=== PATIENT | male | born 1935 | race Caucasian/White ===

== ENCOUNTER 2021-07-09 18:31 | Inpatient (IN) ==
[2021-07-10] MEDS ORDERED: Menthol 1 EACH LOZENGE PO PRN (16:41)
[2021-07-10] MEDS ORDERED: Acetaminophen 325 MG TABLET PO PRN (16:42)
[2021-07-10] MEDS ORDERED: Mag Hydrox/Al Hydrox/Simeth 30 ML UDC PO PRN (16:42)
[2021-07-10] MEDS ORDERED: Ondansetron ODT 4 MG TAB.RAPDIS SL PRN (16:42)
[2021-07-10] MEDS: *HR* Heparin 5,000 UNIT/ML VIAL SQ SCH (20:07)
[2021-07-11] MEDS: *HR* Heparin 5,000 UNIT/ML VIAL SQ SCH ×2 (05:42→17:55)
[2021-07-11 09:43] LABS: Basophils % 0.5 %; Eosinophils # 0.3 K/mcL (0.0-0.6); Eosinophils % 4.5 %; Hematocrit 36.1 % (37.5-50.1); Hemoglobin 12.2 g/dL (12.9-16.9); Immature Granulocytes % 0.7 % (0-4); Lymphocytes % 17.1 %; Mean Corpuscular HGB Conc 33.8 g/dL (31.6-35.5); Mean Corpuscular Hemoglobin 28.5 pg (28.0-33.3); Mean Corpuscular Volume 84.3 fL (83.0-100.0); Mean Platelet Volume 10.6 fL (9.4-12.4); Monocytes # 0.5 K/mcL (0.0-1.3); Monocytes % 9.7 %; Neutrophils # 3.8 K/mcL (1.6-8.9); Platelet Count 217 K/mcL (140-400); Red Blood Count 4.28 M/mcL (4.19-5.50); Red Cell Distribution Width 12.9 % (11.5-14.5); Segmented Neutrophils % 67.5 %; White Blood Count 5.6 K/mcL (4.3-11.1)
[2021-07-11 10:00] LABS: Potassium 4.1 mEq/L (3.5-5.1)
[2021-07-11] MEDS: lisinopriL 10 MG TABLET PO SCH (10:12)
[2021-07-11] MEDS: Aspirin Enteric Coated 325 MG Tablet PO SCH (10:12)
[2021-07-11] MEDS: Melatonin 3 MG TABLET PO PRN (23:52)
[2021-07-12] MEDS: *HR* Heparin 5,000 UNIT/ML VIAL SQ SCH ×2 (05:34→17:48)
[2021-07-12] MEDS: Aspirin Enteric Coated 325 MG Tablet PO SCH (10:47)
[2021-07-12] MEDS: lisinopriL 10 MG TABLET PO SCH (10:47)
[2021-07-12] MEDS: Melatonin 3 MG TABLET PO PRN (21:20)
[2021-07-13] MEDS: *HR* Heparin 5,000 UNIT/ML VIAL SQ SCH ×2 (06:02→17:54)
[2021-07-13] MEDS: Aspirin Enteric Coated 325 MG Tablet PO SCH (09:53)
[2021-07-13] MEDS: lisinopriL 10 MG TABLET PO SCH (09:53)
[2021-07-13] MEDS: Melatonin 3 MG TABLET PO PRN (20:48)
[2021-07-14] MEDS: *HR* Heparin 5,000 UNIT/ML VIAL SQ SCH ×2 (06:52→17:02)
[2021-07-14] MEDS: Aspirin Enteric Coated 325 MG Tablet PO SCH (09:26)
[2021-07-14] MEDS: lisinopriL 10 MG TABLET PO SCH (09:31)
[2021-07-14] MEDS: Melatonin 3 MG TABLET PO PRN (21:33)
[2021-07-15] MEDS: *HR* Heparin 5,000 UNIT/ML VIAL SQ SCH ×2 (07:05→18:01)
[2021-07-15] MEDS: lisinopriL 10 MG TABLET PO SCH (09:52)
[2021-07-15] MEDS: Aspirin Enteric Coated 325 MG Tablet PO SCH (09:52)
[2021-07-15] MEDS: Melatonin 3 MG TABLET PO PRN (20:26)
[2021-07-16] MEDS: *HR* Heparin 5,000 UNIT/ML VIAL SQ SCH ×2 (06:04→21:10)
[2021-07-16] MEDS: lisinopriL 10 MG TABLET PO SCH (08:04)
[2021-07-16] MEDS: Aspirin Enteric Coated 325 MG Tablet PO SCH (08:04)
[2021-07-16 11:47] LABS: Hematocrit 37.1 % (37.5-50.1); Mean Corpuscular HGB Conc 32.3 g/dL (31.6-35.5); Mean Corpuscular Hemoglobin 28.8 pg (28.0-33.3); Mean Platelet Volume 9.8 fL (9.4-12.4); Platelet Count 410 K/mcL (140-400); Red Blood Count 4.17 M/mcL (4.19-5.50); Red Cell Distribution Width 13.1 % (11.5-14.5); White Blood Count 8.5 K/mcL (4.3-11.1)
[2021-07-16 12:03] LABS: Calcium 9.6 mg/dL (8.6-10.3); Potassium 4.5 mEq/L (3.5-5.1)
[2021-07-16] MEDS ORDERED: E-Z-PAQUE (BARIUM SULF) SUSP 1 BOTTLE PO ONE (13:42)
[2021-07-16] MEDS ORDERED: E-Z-HD (BARIUM SULF) SUSPENSION PO ONE (13:42)
[2021-07-16] MEDS: Melatonin 3 MG TABLET PO PRN (20:15)
[2021-07-17] MEDS: *HR* Heparin 5,000 UNIT/ML VIAL SQ SCH ×2 (05:42→17:48)
[2021-07-17] MEDS: Aspirin Enteric Coated 325 MG Tablet PO SCH (09:59)
[2021-07-17] MEDS: lisinopriL 10 MG TABLET PO SCH (10:00)
[2021-07-17] MEDS: Melatonin 3 MG TABLET PO PRN (21:09)
[2021-07-18] MEDS: *HR* Heparin 5,000 UNIT/ML VIAL SQ SCH ×2 (06:55→16:56)
[2021-07-18] MEDS: Aspirin Enteric Coated 325 MG Tablet PO SCH (11:07)
[2021-07-18] MEDS: lisinopriL 10 MG TABLET PO SCH (11:07)
[2021-07-18] MEDS: Melatonin 3 MG TABLET PO PRN (20:55)
[2021-07-19] MEDS: *HR* Heparin 5,000 UNIT/ML VIAL SQ SCH ×2 (06:48→17:35)
[2021-07-19] MEDS: lisinopriL 10 MG TABLET PO SCH (08:22)
[2021-07-19] MEDS: Aspirin Enteric Coated 325 MG Tablet PO SCH (08:22)
[2021-07-19] MEDS: Melatonin 3 MG TABLET PO PRN (19:52)
[2021-07-20] MEDS: *HR* Heparin 5,000 UNIT/ML VIAL SQ SCH ×2 (05:38→18:31)
[2021-07-20] MEDS: lisinopriL 10 MG TABLET PO SCH (09:07)
[2021-07-20] MEDS: Aspirin Enteric Coated 325 MG Tablet PO SCH (09:07)
[2021-07-20] MEDS: Melatonin 3 MG TABLET PO PRN (21:19)
[2021-07-21] MEDS: *HR* Heparin 5,000 UNIT/ML VIAL SQ SCH ×2 (06:24→17:51)
[2021-07-21] MEDS: lisinopriL 10 MG TABLET PO SCH (09:39)
[2021-07-21] MEDS: Aspirin Enteric Coated 325 MG Tablet PO SCH (09:39)
[2021-07-21] MEDS: Melatonin 3 MG TABLET PO PRN (20:44)
[2021-07-22] MEDS: *HR* Heparin 5,000 UNIT/ML VIAL SQ SCH ×2 (05:36→17:30)
[2021-07-22] MEDS: Aspirin Enteric Coated 325 MG Tablet PO SCH (08:11)
[2021-07-22] MEDS: lisinopriL 10 MG TABLET PO SCH (08:11)
[2021-07-22] MEDS: Melatonin 3 MG TABLET PO PRN (20:31)
[2021-07-23] MEDS: *HR* Heparin 5,000 UNIT/ML VIAL SQ SCH ×2 (05:33→17:53)
[2021-07-23 07:48] VITALS: O2SAT 97
[2021-07-23] MEDS: Aspirin Enteric Coated 325 MG Tablet PO SCH (08:20)
[2021-07-23] MEDS: lisinopriL 10 MG TABLET PO SCH (08:20)
[2021-07-23 20:53] VITALS: RESP 17
[2021-07-23] MEDS: Melatonin 3 MG TABLET PO PRN (21:02)
[2021-07-24] MEDS: *HR* Heparin 5,000 UNIT/ML VIAL SQ SCH (05:17)
[2021-07-24 08:04] VITALS: BP 113/57; PULSE 74; TEMP 97.2
[2021-07-24] MEDS: Aspirin Enteric Coated 325 MG Tablet PO SCH (08:52)
[2021-07-24] MEDS: lisinopriL 10 MG TABLET PO SCH (08:52)
== END 2021-07-24 12:45 | disposition home health service (06) | DRG 177 ==
LOC: INPPIK 07-10 18:32
PROVIDERS: ADMIT Family Medicine; ATTEND Family Medicine